=== PATIENT | female | born 2000 | race American Indian/Alaskan Native ===

== ENCOUNTER 2019-01-03 01:49 | Emergency (ER) | payer SELFPAY ==
[2019-01-03 02:30] LABS: Basophils % (Auto) 0.4 % (0.0-1.8); Eosinophils % (Auto) 0.4 % (0.0-4.3); Hematocrit 41.3 % (30.3-42.9); Hemoglobin 13.7 gm/dl (10.1-14.3); Lymphocytes # (Auto) 2.1 K/mm3 (1.2-5.4); Lymphocytes % (Auto) 23.8 % (13.4-35.0); Mean Corpuscular HGB Conc 33 % (30-34); Mean Corpuscular Volume 85 fl (79-97); Monocytes # (Auto) 0.5 K/mm3 (0.0-0.8); Monocytes % (Auto) 5.7 % (0.0-7.3); Platelet Count 249 K/mm3 (140-440); Red Blood Count 4.87 M/mm3 (3.65-5.03); Red Cell Distribution Width 12.7 % (13.2-15.2)
[2019-01-03] MEDS ORDERED: SODIUM CHLORIDE 0.9% 1000 ML 1,000 ML IV ONE ×2 (02:31→04:56)
--- NOTE | 2019-01-03 02:37 | Emergency Department Report ---
ED General Adult HPI - General Chief complaint: Arrhythmia/Palpitations Stated complaint: LAMONT Time Seen by Provider: 01/03/19 02:22 Source: patient Mode of arrival: Wheelchair Limitations: No Limitations - History of Present Illness Initial comments: 18 yo F presents to the ED with anxiety. Pt states she began feeling like her chest was "boxed in" while at work today. Pt states "there were just so many people there." Pt [place]. Pt states she then left work and rode the bus home. She states she saw an older lady on the bus that looked like she was depressed. Pt states this then caused her to think about her life and began to worry that she might become old and depressed like the lady on the bus. Boyfriend states when he got home pt was shaking and hyperventilating. Pt reports at that time she was experiencing palpitations, chest pressure, SOB, dizziness, and felt "boxed in." Pt reports hx of multiple episodes of anxiety attacks such as this. States she is not on any medication. She denies any drug or alcohol use today. Reports hx of marijuana use. -: This afternoon Location: head, chest Consistency: intermittent Improves with: other (deep breathing) Worsens with: other (crowds, certain thoughts) Treatments Prior to Arrival: none - Related Data Previous Rx's Medication Instructions Recorded Last Taken Type Amoxicillin [Amoxicillin TAB] 875 mg PO BID #20 tablet 03/20/14 Unknown Rx LORazepam [Ativan] 0.5 mg PO Q6H PRN #15 tablet 01/03/19 Unknown Rx Allergies Allergy/AdvReac Type Severity Reaction Status Date / Time No Known Allergies Allergy Unverified 03/20/14 11:07 ED Review of Systems ROS: Stated complaint: LAMONT Other details as noted in HPI Comment: All other systems reviewed and negative Constitutional: denies: chills, fever Respiratory: shortness of breath Cardiovascular: chest pain, palpitations Gastrointestinal: denies: abdominal pain Psychiatric: anxiety ED Past Medical Hx - Past Medical History Previous Medical History?: No - Surgical History Past Surgical History?: No - Social History Smoking Status: Current Some Day Smoker Substance Use Type: Alcohol, Marijuana - Medications Home Medications: Home Medications Medication Instructions Recorded Confirmed Last Taken Type Amoxicillin [Amoxicillin TAB] 875 mg PO BID #20 tablet 03/20/14 Unknown Rx LORazepam [Ativan] 0.5 mg PO Q6H PRN #15 tablet 01/03/19 Unknown Rx ED Physical Exam - General Limitations: No Limitations General appearance: alert, in no apparent distress - Head Head exam: Present: atraumatic, normocephalic - Eye Eye exam: Present: normal appearance, PERRL, EOMI - ENT ENT exam: Present: mucous membranes moist - Neck Neck exam: Present: normal inspection - Respiratory Respiratory exam: Present: normal lung sounds bilaterally. Absent: respiratory distress - Cardiovascular Cardiovascular Exam: Present: normal rhythm, tachycardia - GI/Abdominal GI/Abdominal exam: Present: soft. Absent: distended, tenderness - Extremities Exam Extremities exam: Present: normal inspection - Neurological Exam Neurological exam: Present: alert, oriented X3, CN II-XII intact. Absent: motor sensory deficit - Psychiatric Psychiatric exam: Present: normal affect, normal mood. Absent: homicidal ideation, suicidal ideation - Skin Skin exam: Present: warm, dry, intact, normal color ED Course Vital Signs 01/03/19 01/03/19 01/03/19 01:53 02:23 02:30 Temperature 99.3 F 99.1 F Pulse Rate 181 H 131 H 116 H Respiratory 30 H 16 14 Rate Blood Pressure 134/74 127/87 Blood Pressure 128/91 [Left] O2 Sat by Pulse 100 100 100 Oximetry 01/03/19 01/03/19 01/03/19 03:00 03:30 04:00 Temperature Pulse Rate 113 H 110 H 114 H Respiratory 16 19 17 Rate Blood Pressure 118/74 134/79 112/68 Blood Pressure [Left] O2 Sat by Pulse 100 Oximetry 01/03/19 01/03/19 01/03/19 04:30 05:00 05:30 Temperature Pulse Rate 127 H 115 H 103 H Respiratory 21 23 15 Rate Blood Pressure 119/75 112/69 119/85 Blood Pressure [Left] O2 Sat by Pulse Oximetry 01/03/19 05:41 Temperature Pulse Rate 92 H Respiratory Rate Blood Pressure Blood Pressure [Left] O2 Sat by Pulse Oximetry ED Medical Decision Making - Lab Data Result diagrams: 01/03/19 02:20 01/03/19 02:20 - EKG Data -: EKG Interpreted by Hi EKG shows normal: sinus rhythm, axis, intervals, QRS complexes Rate: tachycardia (rate 154) - EKG Data Interpretation: no acute changes - Differential Diagnosis anxiety, PE, hyperthyroidism Critical care attestation.: If time is entered above; I have spent that time in minutes in the direct care of this critically ill patient, excluding procedure time. ED Disposition Clinical Impression: Anxiety Disposition: DC-01 TO HOME OR SELFCARE Is pt being admited?: No Condition: Stable Instructions: Generalized Anxiety Disorder (ED), Anxiety (ED) Prescriptions: LORazepam [Ativan] 0.5 mg PO Q6H PRN #15 tablet PRN Reason: Anxiety Referrals: [facility] [Outside] - 3-5 Days [facility] [Provider Group] - 3-5 Days Time of Disposition: 05:42
[2019-01-03 02:42] LABS: INR 0.93 (0.87-1.13)
[2019-01-03 03:03] LABS: Alanine Aminotransferase 19 units/L (7-56); Albumin 4.5 g/dL (3.9-5); BUN/Creatinine Ratio 11; Blood Urea Nitrogen 10 mg/dL (7-17); Calcium 9.4 mg/dL (8.4-10.2); Hemolysis Index 16
[2019-01-03 03:10] LABS: Free T4 (Free Thyroxine) 1.09 ng/dL (0.76-1.46)
--- NOTE | 2019-01-03 03:21 | XRay Report ---
CHEST 1 VIEW INDICATION / CLINICAL INFORMATION: sob. COMPARISON: None available. FINDINGS: SUPPORT DEVICES: None. HEART / MEDIASTINUM: No significant abnormality. LUNGS / PLEURA: No significant pulmonary or pleural abnormality. No pneumothorax. ADDITIONAL FINDINGS: No significant additional findings. IMPRESSION: 1. No acute findings. Signer Name: Heaven Villalobos MD Signed: 01/03/2019 3:16 AM Workstation Name: [id number]
[2019-01-03 03:24] LABS: Creatine Kinase MB < 1.0 ng/mL (0.0-4.0)
[2019-01-03] MEDS ORDERED: LORazepam 2 MG/ML VIAL IV ONE (03:54)
[2019-01-03 04:14] LABS: Amphetamine Screen,Urine PRESUMPTIVE NEGATIVE; Benzodiazepines Screen,Urine PRESUMPTIVE NEGATIVE; Cannabinoid Screen,Urine PRESUMPTIVE NEGATIVE; Cocaine Screen,Urine PRESUMPTIVE NEGATIVE; Methadone Screen,Urine PRESUMPTIVE NEGATIVE; Opiate Screen,Urine PRESUMPTIVE NEGATIVE
[2019-01-03 04:44] LABS: INR 1.03 (0.87-1.13); Partial Thromboplastin Time 26.9 Sec. (24.2-36.6)
[2019-01-03 05:39] VITALS: BP 119/85
== END 2019-01-03 05:55 | disposition home or self-care (01) ==
LOC: ED 01:49
DX: F41.9 Anxiety disorder, unspecified (principal)
CPT/HCPCS: 36415; 71045; 80053; 80307; 82550; 82553; 83735; 84439; 84443; 84484; 84703; 85025; 85379; 85610; 85730; 93005; 93010; 96374; 99284; J2060; J7030; 80320; G0480

== ENCOUNTER 2019-03-21 11:02 | Emergency (ER) | payer SELFPAY ==
[2019-03-21 11:52] VITALS: BP 125/74
--- NOTE | 2019-03-21 12:01 | Emergency Department Report ---
Chief Complaint: Medical Clearance Stated Complaint: VAGINAL CRAMPING/DIZZINESS/MORNING SICKESS Time Seen by Provider: 03/21/19 11:53 - HPI History of Present Illness: 18 yo AA F pt presents for a confirmation test x today she states positive home reports she is needing a confirmation test for DFACS She denies any abdominal pain, vaginal bleeding/discharge, dysuria/urinary frequency/hematuria or any other complaints or concerns - Exam Vital Signs: Vital Signs 03/21/19 11:47 Temperature 98.4 F Pulse Rate 86 Respiratory 18 Rate Blood Pressure 125/74 O2 Sat by Pulse 100 Oximetry Physical Exam: Pt is alert and in no acute distress Vitals are normal Abdomen is soft, nontender, non distended with normal bowel sounds normal ambulation noted MSE screening note: Focused history and physical exam performed. Due to findings the following was ordered: Pt presents with a non-medical emergency at this time Medical screening exam was performed There is no threat to loss of life or limb ED Disposition for MSE Condition: Stable
== END 2019-03-21 12:00 ==
LOC: ED 11:02
DX: O26.891 Other specified pregnancy related conditions, first trimester (principal); Z3A.01 Less than 8 weeks gestation of pregnancy
CPT/HCPCS: 99281

== ENCOUNTER 2019-05-09 14:44 | Emergency (ER) | payer SELFPAY ==
[2019-05-09] MEDS ORDERED: diphenhydrAMINE 50 MG/ML VIAL IV ONE (17:52)
[2019-05-09] MEDS ORDERED: METOCLOPRAMIDE 10 MG/2 ML INJ IV ONE (17:52)
[2019-05-09] MEDS ORDERED: D5W/0.9% NACL 1,000 ML IV SCH (18:00)
--- NOTE | 2019-05-09 18:03 | Emergency Department Report ---
ED N/V/D HPI - General Chief complaint: Nausea/Vomiting/Diarrhea Stated complaint: 3 M0NTHS PREG. CAN'T KEEP FOOD DOWN Time Seen by Provider: 05/09/19 17:51 Source: patient Mode of arrival: Ambulatory Limitations: No Limitations - History of Present Illness Initial comments: 18-year-old female at 12 weeks gestation presenting with complaints of nausea v omiting and weakness over the past 3 days. She denies abdominal pain, vaginal bleeding or any other complaints. MD complaint: nausea, vomiting -: Gradual, days(s) (3) Description of Vomiting: food contents, watery Description of Diarrhea: other (none) Radiation: none Pain Scale: 0 Improves with: none Worsens with: none Associated Symptoms: denies other symptoms - Related Data Previous Rx's Medication Instructions Recorded Last Taken Type Amoxicillin [Amoxicillin TAB] 875 mg PO BID #20 tablet 03/20/14 Unknown Rx LORazepam [Ativan] 0.5 mg PO Q6H PRN #15 tablet 01/03/19 Unknown Rx Metoclopramide [Reglan] 10 mg PO ACHS #30 tablet 05/09/19 Unknown Rx Allergies Allergy/AdvReac Type Severity Reaction Status Date / Time No Known Allergies Allergy Unverified 03/20/14 11:07 ED Review of Systems ROS: Stated complaint: 3 M0NTHS PREG. CAN'T KEEP FOOD DOWN Other details as noted in HPI Comment: All other systems reviewed and negative Gastrointestinal: as per HPI ED Past Medical Hx - Past Medical History Previous Medical History?: No - Surgical History Past Surgical History?: No - Social History Smoking Status: Never Smoker Substance Use Type: None - Medications Home Medications: Home Medications Medication Instructions Recorded Confirmed Last Taken Type Amoxicillin [Amoxicillin TAB] 875 mg PO BID #20 tablet 03/20/14 Unknown Rx LORazepam [Ativan] 0.5 mg PO Q6H PRN #15 tablet 01/03/19 Unknown Rx Metoclopramide [Reglan] 10 mg PO ACHS #30 tablet 05/09/19 Unknown Rx ED Physical Exam - General Limitations: No Limitations General appearance: alert, in no apparent distress - Head Head exam: Present: atraumatic, normocephalic - Eye Eye exam: Present: normal appearance - ENT ENT exam: Present: mucous membranes moist - Neck Neck exam: Present: normal inspection - Respiratory Respiratory exam: Present: normal lung sounds bilaterally. Absent: respiratory distress - Cardiovascular Cardiovascular Exam: Present: normal rhythm, tachycardia. Absent: systolic murmur, diastolic murmur, rubs, gallop - GI/Abdominal GI/Abdominal exam: Present: soft, normal bowel sounds. Absent: distended, tend erness, guarding - Extremities Exam Extremities exam: Present: normal inspection - Back Exam Back exam: Present: normal inspection - Neurological Exam Neurological exam: Present: alert, oriented X3 - Psychiatric Psychiatric exam: Present: normal affect, normal mood - Skin Skin exam: Present: warm, dry, intact, normal color. Absent: rash ED Course Vital Signs 05/09/19 05/09/19 05/09/19 14:54 16:52 18:07 Temperature 98.7 F 98 F Pulse Rate 99 H 123 H Respiratory 18 16 Rate Blood Pressure 158/104 124/73 Blood Pressure 123/83 [Left] O2 Sat by Pulse 99 100 Oximetry 05/09/19 18:11 Temperature Pulse Rate 125 H Respiratory 16 Rate Blood Pressure Blood Pressure [Left] O2 Sat by Pulse 100 Oximetry ED Medical Decision Making - Lab Data Result diagrams: 05/09/19 Unknown 05/09/19 Unknown - Medical Decision Making 12-week 18-year-old female presenting with vomiting for the past 3 days now with associated lightheadedness and generally weak. No abdominal pain or bleeding. Exam reveals dry mucous membranes, tachycardia otherwise benign. Patient given IV fluids. After first liter, heart rate improving (110), Reglan and Benadryl given with resolution of nausea, no further vomiting. She will be given an additional liter of fluids prior to discharge and then follow-up with [facility]. - Differential Diagnosis hyperemesis, dehydration Critical care attestation.: If time is entered above; I have spent that time in minutes in the direct care of this critically ill patient, excluding procedure time. ED Disposition Clinical Impression: Vomiting , Dehydration Disposition: -01 TO HOME OR SELFCARE Is pt being admited?: No Condition: Stable Instructions: Dehydration (ED), Hyperemesis Gravidarum (ED) Prescriptions: Metoclopramide [Reglan] 10 mg PO ACHS #30 tablet Referrals: PRIMARY CARE, [Primary Care Provider] - 3-5 Days ESTEFANY JUAREZ MD [Staff Physician] - 3-5 Days Time of Disposition: 18:36
[2019-05-09 18:20] LABS: Basophils % (Auto) 0.1 % (0.0-1.8); Hematocrit 41.9 % (30.3-42.9); Hemoglobin 13.9 gm/dl (10.1-14.3); Lymphocytes # (Auto) 0.9 K/mm3 (1.2-5.4); Lymphocytes % (Auto) 10.1 % (13.4-35.0); Mean Corpuscular HGB Conc 33 % (30-34); Mean Corpuscular Volume 84 fl (79-97); Monocytes # (Auto) 0.5 K/mm3 (0.0-0.8); Monocytes % (Auto) 6.4 % (0.0-7.3); Platelet Count 188 K/mm3 (140-440); Red Blood Count 4.97 M/mm3 (3.65-5.03); Red Cell Distribution Width 13.6 % (13.2-15.2)
[2019-05-09 18:32] LABS: BUN/Creatinine Ratio 5; Blood Urea Nitrogen 3 mg/dL (7-17); Calcium 9.8 mg/dL (8.4-10.2); Hemolysis Index 42
[2019-05-09] MEDS ORDERED: D5W/0.9% NACL 1,000 ML IV ONE ×2 (19:00)
[2019-05-09 19:26] VITALS: BP 110/69
== END 2019-05-09 19:47 | disposition home or self-care (01) ==
LOC: ED 14:44
DX: O99.281 Endocrine, nutritional and metabolic diseases complicating pregnancy, first trimester (principal); E86.0 Dehydration; Z79.899 Other long term (current) drug therapy; Z3A.12 12 weeks gestation of pregnancy
CPT/HCPCS: 36415; 80048; 83690; 85025; 96361; 96374; 96375; 99283; J1200; J2765; J7042

== ENCOUNTER 2019-07-23 03:05 | Outpatient (CLI) | payer MEDICAID | END 2019-07-23 04:06 | disposition home or self-care (01) | LOC: TRG 03:05 → APU 03:14 → TRG 04:06 | PROVIDERS: ATTEND Obstetrics & Gynecology | DX: O26.892 Other specified pregnancy related conditions, second trimester (principal); Z3A.24 24 weeks gestation of pregnancy | CPT/HCPCS: 59025 ==